=== PATIENT | male | born 1970 | race Hispanic/Latino ===

== ENCOUNTER 2024-02-24 17:26 | Emergency (ER) | payer SELFPAY ==
[~2024-02-24] VITALS: Ht 172.7 cm; Wt 81.6 kg
[2024-02-24 17:53] VITALS: BP 183/93
[2024-02-24 18:00] VITALS: BP 150/76
[2024-02-24 18:15] VITALS: BP 131/83
[2024-02-24] MEDS ORDERED: CLEOCIN300 MG PO (19:36)
[2024-02-24 19:41] VITALS: BP 131/83
== END 2024-02-24 19:50 | disposition home or self-care (01) | DRG 603 ==
LOC: ED 17:26
DX: L03.115 Cellulitis of right lower limb (principal); E11.9 Type 2 diabetes mellitus without complications